=== PATIENT | male | born 1950 | race Caucasian/White ===

== ENCOUNTER → 2022-10-09 | Outpatient (CLI) | payer BC, OTHER ==
[2022-10-09 19:45] LABS: Blood Urea Nitrogen 22.2 mg/dL (9.0-27.0); Calcium 9.7 mg/dL (8.7-10.3); Carbon Dioxide 25.6 mmol/L (21.6-31.8); Chloride 102 mmol/L (96-109); Glucose 107 mg/dL (70-110); Potassium 4.8 mmol/L (3.5-5.5); Sodium 138 mmol/L (135-145)
[2022-10-09 22:57] LABS: Basophils # (A) 0.05 X 10*3/uL (0.00-0.10); Eosinophils # (A) 0.15 X 10*3/uL (0.04-0.35); Eosinophils % (A) 2.9 %; HCT 42.1 % (39.6-50.0); HGB 13.1 d/dL (13.0-17.0); Lymphocytes # (A) 1.31 X 10*3/uL (0.90-5.00); Lymphocytes % (A) 25.6 %; MCH 30.4 pg (27.0-32.0); MCHC 31.1 d/dL (32.0-37.0); MCV 97.7 FL (80.0-97.0); Mean Platelet Volume 11.6 FL (9.5-12.2); Monocytes # (A) 0.36 X 10*3/uL (0.20-1.00); NRBC Per 100 WBC 0 X 10*3/uL (0.00-0.01); Neutrophils # (A) 3.23 X 10*3/uL (1.80-7.70); Neutrophils % (A) 63.1 %; Platelet Count 144 X 10*3/uL (140-440); RBC 4.31 X 10*6/uL (4.40-5.60); RDW 15.3 % (11.5-14.5); WBC 5.12 X 10*3/uL (4.50-10.00)
== END | disposition home or self-care (01) ==
LOC: LABPAT 15:08
PROVIDERS: ATTEND Urology
DX: Z01.812 Encounter for preprocedural laboratory examination (principal); N21.0 Calculus in bladder
CPT/HCPCS: 80048; 85025

== ENCOUNTER → 2022-12-10 | Outpatient (CLI) | payer BC ==
--- NOTE | 2022-12-10 10:03 | CT ---
EXAMINATION TYPE: CT abdomen pelvis wo con DATE OF EXAM: 12/10/2022 COMPARISON: None HISTORY: Lt sided renal stones, UTI CT DLP: 1076 mGycm Examination of the solid and hollow viscera is limited given the lack of contrast. FINDINGS: LUNG BASES: No evidence for nodule. No evidence for infiltrate. Underlying cardiomegaly noted. LIVER/GB: The gallbladder is unremarkable. No space-occupying hepatic lesion. PANCREAS: No pancreatic mass identified. No inflammatory process seen. SPLEEN: No evidence for splenomegaly. No intrasplenic lesions seen. ADRENALS: No adrenal nodules identified. No evidence for thickening. KIDNEYS: Hypoattenuating renal lesions are seen bilaterally likely reflecting cysts. The largest lesi on is seen midpole left kidney and measures 4.3 cm with a parapelvic hypoattenuating lesion measuring 3.3 cm. The largest probable cyst right kidney is seen within the parapelvic region mid pole measuri ng 1.7 cm. Nonobstructing 7.8 mm calculus lower pole left kidney. There is urinary bladder wall thick ening with trabeculations and surrounding stranding. Ventral left-sided diverticulum noted. Correlate for underlying nonspecific cystitis. BOWEL: Appendix has a normal appearance. No evidence of bowel obstruction. No inflammatory process. Lymph nodes: No evidence for adenopathy greater than 1 cm. Abdominal aorta: Atheromatous changes seen. No evidence for aneurysm. Genital organs: No significant abnormality. Other: Fat-containing umbilical hernia. IMPRESSION: 1. Nonobstructing left-sided nephrolithiasis. 2. Probable renal cysts. 3. Urinary bladder wall irregularity and surrounding stranding felt to reflect nonspecific cystitis. Correlate clinically.
== END | disposition home or self-care (01) ==
LOC: RADCTMAIN 08:51
PROVIDERS: ATTEND Urology
DX: N20.0 Calculus of kidney (principal); N39.0 Urinary tract infection, site not specified; N32.89 Other specified disorders of bladder
CPT/HCPCS: 74176

== ENCOUNTER → 2023-01-15 | Outpatient (CLI) | payer BC ==
[2023-01-15 16:16] LABS: Basophils # (A) 0.07 X 10*3/uL (0.00-0.10); Basophils % (A) 1.2 %; Eosinophils # (A) 0.19 X 10*3/uL (0.04-0.35); Eosinophils % (A) 3.3 %; HCT 41.5 % (39.6-50.0); HGB 13.2 g/dL (13.0-17.0); Lymphocytes # (A) 1.46 X 10*3/uL (0.90-5.00); Lymphocytes % (A) 25.7 %; MCH 30.6 pg (27.0-32.0); MCHC 31.8 g/dL (32.0-37.0); MCV 96.1 FL (80.0-97.0); Mean Platelet Volume 11.3 FL (9.5-12.2); Monocytes # (A) 0.35 X 10*3/uL (0.20-1.00); Monocytes % (A) 6.2 %; NRBC Per 100 WBC 0 X 10*3/uL (0.00-0.01); Neutrophils % (A) 63.2 %; Platelet Count 116 X 10*3/uL (140-440); RBC 4.32 X 10*6/uL (4.40-5.60); RDW 14.9 % (11.5-14.5); WBC 5.69 X 10*3/uL (4.50-10.00)
[2023-01-15 16:28] LABS: BUN/Creat Ratio 13.62 Ratio (12.00-20.00); Blood Urea Nitrogen 17.7 mg/dL (9.0-27.0); Calcium 9.7 mg/dL (8.7-10.3); Carbon Dioxide 24.8 mmol/L (21.6-31.8); Chloride 105 mmol/L (96-109); Glucose 110 mg/dL (70-110); Potassium 4.5 mmol/L (3.5-5.5); Sodium 141 mmol/L (135-145)
== END | disposition home or self-care (01) ==
LOC: LABPAT 09:37
PROVIDERS: ATTEND Urology
DX: Z01.812 Encounter for preprocedural laboratory examination (principal); N40.1 Benign prostatic hyperplasia with lower urinary tract symptoms; N13.8 Other obstructive and reflux uropathy; R31.29 Other microscopic hematuria
CPT/HCPCS: 80048; 85025; 87086

== ENCOUNTER 2023-01-22 11:09 | Day surgery (SDC) | payer BC ==
--- NOTE | 2023-01-15 18:51 | P.GSHP ---
History of Present Illness H&P Date: 01/15/23 Chief Complaint: Recurrent UTI The patient is a 72-year-old white male who has been treated for recurrent E. coli UTIs. He underwent removal of a bladder calculus in September, but the infection persists. CT scan shows an 8 mm left lower pole renal calculus. Cystoscopy shows evidence of BPH. - Constitutional Constitutional: Denies chills, Denies fever - Cardiovascular Cardiovascular: Reports high blood pressure - Genitourinary (Male) Genitourinary: Reports dysuria, Reports flank pain, Reports hematuria Past Medical History Past Medical History: Cancer, Hyperlipidemia, Hypertension Additional Past Medical History / Comment(s): renal calculi, urinary frequency, skin CA, stomach ulcers-4 ruptured with large volume of blood loss History of Any Multi-Drug Resistant Organisms: None Reported Additional Past Surgical History / Comment(s): skin CA removal. kidney stone removal. neck discectomy Past Anesthesia/Blood Transfusion Reactions: No Reported Reaction Additional Past Anesthesia/Blood Transfusion Reaction / Comment(s): "years ago after one surgery I woke up angry" Past Psychological History: No Psychological Hx Reported Smoking Status: Former smoker Past Alcohol Use History: Occasional Past Drug Use History: None Reported - Past Family History Mother Additional Family Medical History / Comment(s): lung CA Sister(s) Additional Family Medical History / Comment(s): brain CA Medications and Allergies Home Medications Medication Instructions Recorded Confirmed Type Ascorbic Acid [Vitamin C] 500 mg PO DAILY 10/10/22 10/10/22 History Aspirin [Adult Low Dose Aspirin EC] 81 mg PO DAILY 10/10/22 10/10/22 History Bempedoic Acid [Nexletol] 180 mg PO DAILY 10/10/22 10/10/22 History Cholecalciferol [Vitamin D3 (25 25 mcg PO Q48H 10/10/22 10/10/22 History Mcg = 1000 Iu)] Cyanocobalamin (Vitamin B-12) 1,000 mcg PO DAILY 10/10/22 10/10/22 History [Vitamin B-12] Ferrous Sulfate [Iron] 325 mg PO DAILY 10/10/22 10/10/22 History Fish Oil/Dha/Epa [Fish Oil 1,200 1 each PO DAILY 10/10/22 10/10/22 History mg Fish Oil] Metoprolol Tartrate 25 mg PO DAILY 10/10/22 10/10/22 History Nf-Bactrim Dose Unk 1 tab PO DIRECTED 10/10/22 10/10/22 History Zinc Gluconate [Zinc] 50 mg PO DAILY 10/10/22 10/10/22 History Allergies Allergy/AdvReac Type Severity Reaction Status Date / Time No Known Allergies Allergy Verified 12/01/22 15:04 Surgical - Exam - General well developed, well nourished, no distress - Respiratory normal respiratory effort - Genitourinary normal penis with no external lesions, testicles non-tender - Psychiatric oriented to time, oriented to person, oriented to place, speech is normal, memory intact Results - Imaging CT scan - abdomen: report reviewed, image reviewed Assessment and Plan (1) Benign prostatic hyperplasia with lower urinary tract symptoms Status: Acute Code(s): N40.1 - BENIGN PROSTATIC HYPERPLASIA WITH LOWER URINARY TRACT SYMP SNOMED Code(s): 465308055 Plan: I had a lengthy discussion with the patient regarding his recurrent/persistent E. coli UTI. This has persisted despite removal of his bladder calculus. He is aware that his left renal calculus may be infected. However, he does report lower urinary tract symptoms and has been advised that the most common cause of recurrent UTIs in males his chronic prostatitis. In view of this, he will undergo a transurethral resection of the prostate (TURP). The procedure has been reviewed in detail with the patient. He has been made aware of potential risks, which include anesthesia, bleeding, erectile dysfunction, retrograde ejaculation, urinary incontinence, and persistent voiding symptoms. He is also aware that he may continue to experience recurrent UTIs despite the TURP.
[~2023-01-22 11:09] MED LIST: DEXAMETHASONE SOD PHOSPHATE 4 MG/ML 1 ML VIAL IV ONE; GENTAMICIN 120 MG in SODIUM CHLORIDE 0.9% 100 ML IVPB PRN; HYDROmorphone 0.5 MG/0.5 ML SYRINGE IVP PRN; LACTATED RINGERS 1,000 ML IV SCH; ONDANSETRON 4 MG/2 ML VIAL IVP ONE
[2023-01-22] MEDS ORDERED: LIDOCAINE 1% (10MG/ML) FOR IV START INTRADERMA ONE (12:12)
[2023-01-22 12:15] VITALS: TEMP 97.5
[2023-01-22 12:32] LABS: Glucose,Whole Blood 92 mg/dL (70-110)
[2023-01-22] MEDS ORDERED: PROPOFOL 10 MG/ML 20 ML VIAL IV ONE (13:41)
[2023-01-22] MEDS ORDERED: SUCCINYLCHOLINE CHLORIDE 200 MG/10 ML VIAL IV ONE (13:41)
[2023-01-22] MEDS ORDERED: MIDAZOLAM 2 MG/2 ML VIAL ONE (13:41)
[2023-01-22] MEDS ORDERED: FUROSEMIDE 10 MG/ML 2 ML VIAL ONE (13:41)
[2023-01-22] MEDS ORDERED: ROCURONIUM 10 MG/ML (5 ML VIAL) IV ONE (13:41)
[2023-01-22] MEDS ORDERED: fentaNYL (PF) 50 MCG/ML 2 ML AMP ONE (13:41)
[2023-01-22] MEDS ORDERED: LIDOCAINE 1% INJ 10MG/ML (20 ML MDV) ONE (13:41)
[2023-01-22] MEDS ORDERED: LACTATED RINGERS 1,000 ML IV ONE (15:03)
--- NOTE | 2023-01-22 15:43 | P.OP ---
Date of Procedure: 01/22/23 Preoperative Diagnosis: BPH with obstruction Postoperative Diagnosis: Same Procedure(s) Performed: Cystoscopy, bipolar transurethral resection of prostate (TURP) Anesthesia: DEREK Surgeon: Micah Dave Estimated Blood Loss (ml): 100 IV fluids (ml): 1,500 Pathology: other (Prostate chips) Condition: stable Disposition: PACU Indications for Procedure: The patient is a 72-year-old white male who has been treated for recurrent E. coli UTIs. He underwent removal of a bladder calculus in September, but the infection persists. CT scan shows an 8 mm left lower pole renal calculus. Cystoscopy shows evidence of BPH. Operative Findings: Bilobar BPH Description of Procedure: The patient was taken in the operating room and placed in the dorsolithotomy position. Urinary dribbling was noted at this time. The external genitalia was prepped and draped sterilely. The 25-[place] ACMI resectoscope sheath was introduced into the bladder. The bladder was inspected. Both ureteral orifices were of normal anatomic location and configuration, and clear urine effluxed from both. No tumors or foreign bodies were seen. Examination of the prostate revealed complete obstruction with a bilobar configuration. Using the bipolar cutting loop, the lateral lobes were resected down to the surgical capsule. The floor of the prostate was then resected, proximal to the verumontanum. Next, the remaining anterior tissue was resected. The residual apical tissue was then carefully resected, with care taken to avoid injury to the external urinary sphincter. The resection was carried down to the surgical capsule in all 4 quadrants. The prostatic fossa was then carefully examined, and any areas of bleeding were controlled with electrocautery. The capsular perforation was noted on the right side, resulting in some oozing. As the bladder was inspected, a partial-thickness tear at the right bladder dome was noted resulting from the beak of the resectoscope in conjunction with suction. The mucosal edges were fulgurated. Adequate hemostasis was attained. The resectoscope was withdrawn into the bulbous urethra. The external urinary sphincter remained intact. The prostatic fossa was open. All prostate chips were removed from the bladder. These were saved and sent for pathologic examination. The resectoscope was removed, and a 20 [place]ian, 3-Way Lozano catheter was placed. Continuous bladder irrigation was started using 0.9 normal saline. The return was essentially clear. The abdomen was soft and nondistended. The patient tolerated the procedure well was taken to the recovery room in stable condition.
[2023-01-22] MEDS ORDERED: KETOROLAC 15 MG/ML 1 ML VIAL IVP ONE (17:53)
[2023-01-22 19:30] VITALS: BP 146/82; PULSE 56; RESP 18
== END 2023-01-22 19:09 | disposition home or self-care (01) ==
LOC: OR 11:09 → 5NMEDONC 15:50 → 2ORMAIN 17:31 → OR 19:09
PROVIDERS: ATTEND Urology
DX: N40.1 Benign prostatic hyperplasia with lower urinary tract symptoms (principal); N13.8 Other obstructive and reflux uropathy; Z87.440 Personal history of urinary (tract) infections; I10 Essential (primary) hypertension; E78.5 Hyperlipidemia, unspecified; Z87.442 Personal history of urinary calculi; Z87.891 Personal history of nicotine dependence; Z80.1 Family history of malignant neoplasm of trachea, bronchus and lung; Z79.82 Long term (current) use of aspirin; Z79.899 Other long term (current) drug therapy
CPT/HCPCS: 52601; 88305; J2250; J0330; J1100; J1940; J0690; J2405; J2001; J3010; J1580; J1885; J2704

== ENCOUNTER → 2024-01-22 | Outpatient (CLI) | payer BC ==
--- NOTE | 2024-01-22 13:23 | XR ---
EXAMINATION TYPE: XR KUB DATE OF EXAM: 01/22/2024 1:00 PM COMPARISON: None CLINICAL INDICATION: Male, 73 years old with history of N39.9 DISORDER OF URINARY SYSTEM, UNSPECIFIED , , FINDINGS: There is moderate stool. No dilated small bowel loops. 9 mm calcification left mid abdomen. Degenerat tre change at both hips and lower lumbar spine. Lung bases are clear. IMPRESSION: 9 mm left renal stone suggested. Moderate stool burden. [facility], , 01/22/2024 1:20 PM
--- NOTE | 2024-01-22 13:51 | US ---
EXAMINATION TYPE: US kidneys/renal and bladder DATE OF EXAM: 01/22/2024 COMPARISON: NONE CLINICAL INDICATION: Male, 73 years old with history of N39.9 DISORDER OF URINARY SYSTEM, UNSPECIFIED ; uti bladder infection hx of stones. TECHNIQUE: Grayscale imaging of the bilateral kidneys and urinary bladder: FINDINGS: EXAM MEASUREMENTS: Right Kidney: 13.3 x 5.4 x 3.2 cm Left Kidney: 10.5 x 5.2 x 4.5 cm Right Kidney: Anechoic area lower pole 1.5 x 1.9 x 1.7 cm. Left Kidney: Multiple anechoic areas largest upper pole 5.4 x 3.8 x 4.8 cm. Hyperechoic focus measu ring up to 10 mm Bladder: anechoic Bilateral Jets seen: no right only. There is no evidence for hydronephrosis at this point in time. No nephrolithiasis is seen. No zachery s are identified. The urinary bladder is anechoic. IMPRESSION: 1. No evidence for obstructive uropathy. 2. Bilateral simple cysts. 3. Nonobstructing left renal calculus. [facility], , 01/22/2024 1:48 PM
== END | disposition home or self-care (01) ==
LOC: RADUSWWP 12:17
PROVIDERS: ATTEND Urology
DX: N39.9 Disorder of urinary system, unspecified (principal); N20.0 Calculus of kidney; N28.1 Cyst of kidney, acquired
CPT/HCPCS: 74018; 76770

== ENCOUNTER → 2024-03-22 | Outpatient (CLI) | payer BC ==
[2024-03-22 19:55] LABS: Basophils # (A) 0.07 X 10*3/uL (0.00-0.10); Basophils % (A) 1.3 %; Eosinophils # (A) 0.22 X 10*3/uL (0.04-0.35); Eosinophils % (A) 3.9 %; HCT 42.1 % (39.6-50.0); HGB 13.1 g/dL (13.0-17.0); Lymphocytes # (A) 0.92 X 10*3/uL (0.90-5.00); Lymphocytes % (A) 16.5 %; MCH 29.3 pg (27.0-32.0); MCHC 31.1 g/dL (32.0-37.0); MCV 94.2 FL (80.0-97.0); Mean Platelet Volume 11.6 FL (9.5-12.2); Monocytes # (A) 0.38 X 10*3/uL (0.20-1.00); Monocytes % (A) 6.8 %; NRBC Per 100 WBC 0 X 10*3/uL (0.00-0.01); Neutrophils # (A) 3.97 X 10*3/uL (1.80-7.70); Neutrophils % (A) 71.1 %; Platelet Count 149 X 10*3/uL (140-440); RBC 4.47 X 10*6/uL (4.40-5.60); RDW 16.6 % (11.5-14.5); WBC 5.58 X 10*3/uL (4.50-10.00)
[2024-03-22 20:05] LABS: BUN/Creat Ratio 17.08 Ratio (12.00-20.00); Blood Urea Nitrogen 20.5 mg/dL (9.0-27.0); Calcium 9.7 mg/dL (8.7-10.3); Carbon Dioxide 25.3 mmol/L (21.6-31.8); Chloride 102 mmol/L (96-109); Glucose 126 mg/dL (70-110); Potassium 4.5 mmol/L (3.5-5.5); Sodium 140 mmol/L (135-145)
== END | disposition home or self-care (01) ==
LOC: LABPAT 15:37
PROVIDERS: ATTEND Urology
DX: Z01.812 Encounter for preprocedural laboratory examination (principal); N20.0 Calculus of kidney; N35.912 Unspecified bulbous urethral stricture, male
CPT/HCPCS: 80048; 85025; 87086

== ENCOUNTER → 2024-05-05 | Outpatient (CLI) | payer BC ==
--- NOTE | 2024-05-05 15:23 | XR ---
EXAMINATION TYPE: XR KUB DATE OF EXAM: 05/05/2024 3:12 PM COMPARISON: 03/31/2024 CLINICAL INDICATION: Male, 74 years old with history of N20.0 CALCULUS OF KIDNEY; [facility] TECHNIQUE: One radiographic view of the abdomen was obtained. FINDINGS: The bowel gas pattern is nonspecific without dilated loops of small or large bowel. . Fecal material and gas are demonstrated throughout the colon and rectum. There is no evidence for organome isaura or pneumoperitoneum. Degeneration changes of the spine. No acute osseous process. Moderate to severe degeneration changes of the hips with osteophyte information joint space narrowing. No abnorma l calcifications are present. Submillimeter calculus projecting over the right renal sinus. IMPRESSION: 1. Left renal calculus measuring 7 mm in similar position to prior. 2. Nonspecific bowel gas pattern without radiographic evidence for acute process. 3. Moderate to severe degeneration changes of the hips and spine. [facility], , 05/05/2024 3:21 PM
== END | disposition home or self-care (01) ==
LOC: RADXRMAIN 14:56
PROVIDERS: ATTEND Urology
DX: N20.0 Calculus of kidney (principal); M16.0 Bilateral primary osteoarthritis of hip
CPT/HCPCS: 74018

== ENCOUNTER → 2024-05-19 | Outpatient (CLI) | payer BC ==
--- NOTE | 2024-05-20 07:19 | US ---
EXAMINATION TYPE: US kidneys/renal and bladder DATE OF EXAM: 05/19/2024 COMPARISON: Renal ultrasound January 22, 2024 CLINICAL INDICATION: Male, 74 years old with history of N20.0 CALCULUS OF KIDNEY; TECHNIQUE: Grayscale imaging of the bilateral kidneys and urinary bladder: FINDINGS: EXAM MEASUREMENTS: Right Kidney: 12.9 x 5.4 x 6.0 cm Left Kidney: 10.7 x 4.4 x 5.3 cm Right Kidney: cystic structure inferiorly= 2.1 x 2.4 x 2.3cm Left Kidney: largest cystic structure = 3.7 x 4.2 x 4.4cm, inferior pole possible stone cluster seen = 1.3cm Bladder: diverticulum seen There is no evidence for hydronephrosis at this point in time. Simple appearing thin-walled cysts padmaja aterally are redemonstrated. Hyperechoic focus lower pole of the left kidney suspicious for nonobstru cting calculus is redemonstrated. The urinary bladder is anechoic. Diverticulum is redemonstrated. IMPRESSION: Persistent large nonobstructing lower pole calculus left kidney. No hydronephrosis seen b ilaterally. [facility], , 05/20/2024 7:17 AM
== END | disposition home or self-care (01) ==
LOC: RADUSWWP 15:34
PROVIDERS: ATTEND Urology
DX: N20.0 Calculus of kidney (principal); N28.1 Cyst of kidney, acquired
CPT/HCPCS: 76770